=== PATIENT | female | born 1955 | race Caucasian/White ===

== ENCOUNTER 2023-04-04 09:20 | Inpatient (IN) | payer MEDICARE, SELFPAY ==
[2023-04-04] MEDS: hydrOXYzine HCL 25 MG TABLET PO ×2 (10:31→22:04)
[2023-04-04] MEDS: risperiDONE 2 MG TABLET PO ×2 (10:31→20:24)
[2023-04-04 10:45] VITALS: BMI 23.9
--- NOTE | 2023-04-04 11:26 | HO.PSYADMNOT ---
HPI Date of Service: 04/04/23 Chief Complaint: Adjustment disorder Sources of Information: patient interviewed, chart reviewed and crisis/core team assessment reviewed HPI Subjective Notes: Orellana Warning and Conditional Voluntary Narrative: The patient is a 67-year-old female, , mother of 1 adult child, resident of an assisted living facility referred from another hospital out of our catchment area for exacerbation of ashlie and psychosis. The patient was medically cleared, assessed by crisis and transferring to this facility for psychiatric stabilization. According to the crisis assessment the patient carries a diagnosis of bipolar disorder type 1 and alcohol use disorder in early remission. The crisis team report that the patient became very restless, agitated at times with altered mental status at her facility and she was rushed to the emergency room. While she was in the emergency room she had manic symptoms elicited by flight of ideas, grandiose but also psychotic symptoms elicited by paranoia and disorganized behavior. She was transferred to this facility for further treatment. On intake, the patient has very fast speech, flight of ideas, grandiose delusions, paranoid delusions but she was easily redirectable. Her mood was extremely labile, crying at times and laughing at times. She stated that she was taking her medications but she is unable to recall what can on medications she takes. I review the assessment and apparently her psychiatrist wanted to change her typical antipsychotic to Rexulti. She was able to contract for safety and she gave me permission to contact her psychiatrist and her daughter who is the primary caregiver. Apparently her daughter is a physician purchasing assistant and she takes care of her. We discussed risks, benefits, side effects and alternatives and the patient reported that she wants treatment. She wants to be discharged as soon as she can back to her regular residents. Past Psychiatric History: The patient is a very poor historian due to her ashlie and psychosis but apparently she had 2 or 3 prior admissions into the hospital. She stated that she start having manic symptoms very late in life and she self diagnosed with the condition. She follows outpatient services in her community. She had 2 prior admissions, most likely in the last 2 or 3 years Medical Evaluation Reviewed: Hospitalist Myah Pending [facility] Medical History (Updated 04/04/23 @ 15:47 by Duran Cobb) History of TIA (transient ischemic attack) Narrative: Hypothyroidism Hypertension Hypercholesteremia GERD Family History: She has a brother with bipolar disorder Social History: The patient was raised by her parents, apparently her milestones were achieved at expected age and she grabbed from high school. Substance History: She admitted that she used to abuse alcohol and tobacco and she had been clean and sober for the last months. She stated that she was diagnosed with a doll diagnosis. Trauma History: Refused to elaborate Diagnostics Vital Signs (24Hr): BMI result Body Mass Index 23.9 Meds/Allergies Meds Home Medications Medication Instructions Recorded Confirmed Type aspirin 81 mg tablet,delayed 81 mg PO DAILY 04/04/23 04/04/23 History release atorvastatin 40 mg tablet 40 mg PO BEDTIME 04/04/23 04/04/23 History clonidine HCl 0.1 mg tablet 0.1 mg PO BID 04/04/23 04/04/23 History clopidogrel 75 mg tablet 75 mg PO DAILY 04/04/23 04/04/23 History divalproex 500 mg tablet,delayed 500 mg PO BID 04/04/23 04/04/23 History release levothyroxine 50 mcg capsule 50 mcg PO DAILY 04/04/23 04/04/23 History omeprazole 40 mg capsule,delayed 40 mg PO DAILY 04/04/23 04/04/23 History release risperidone 2 mg tablet 2 mg PO BID 04/04/23 04/04/23 History spironolactone 25 mg tablet 12.5 mg PO DAILY 04/04/23 04/04/23 History thiamine HCl (vitamin B1) 100 mg 100 mg PO DAILY 04/04/23 04/04/23 History tablet Allergies Allergies Allergy/AdvReac Type Severity Reaction Status Date / Time Sulfa (Sulfonamide Allergy Unknown Verified 04/04/23 11:07 Antibiotics) Mental Status Exam Mental Status Exam Patient Appearance: Appropriate (On hospital gowns) Patient Orientation: Person and Situation Level of Consciousness: Awake and Appropriate Patient Behavior: Talkative, Restless and Distractible Mood Description: Elated Affect Description: Labile Ability to Follow Directions: Fair Speech Pattern: Rambling, Rapid and Excessive Hallucinations: None Delusions: Paranoid Ideation, Grandiose and Ideas of Reference Thought Process: Illogical and Distracted Thought Content: positive for Perseveration, positive for Loose Associations, positive for Tangential and positive for Disorganized Judgement: Poor Assessment & Plan Assessment & Plan (1) Bipolar disorder: Status: Acute Code(s): F31.9 - Bipolar disorder, unspecified (2) Alcohol use disorder in remission: Status: Acute Code(s): F10.91 - Alcohol use, unspecified, in remission Plan The patient is an elderly female with a past history of bipolar disorder and alcohol use disorder in early remission referred from another hospital out of our catchment area due to exacerbation of ashlie and psychosis. According to the crisis assessment his psychiatrist was contacted and he wants to change to Rexulti from Risperdal. Plan 1. Gather collateral information we will try to contact her daughter and psychiatrist. 2. Continue with regular medications such as Depakote and Risperdal since we do not have collateral at this moment. 3. Depakote level for tomorrow and basic metabolic panel with LFTs. 4. Hospitalist consult for medical clearance 5. Reassessment with results 6. 15 minute checks. Patient educated on: diagnosis Reason for continued inpatient stay Substantial Risk for: inability to function, rapid decompensation and med/psych decompensation Statement Statement: I have reviewed the history and physical and performed a pertinent examination on my patient. No changes have occurred unless specified. If the History and Physical was not performed prior to admission, the Hospitalist's service will be consulted for completing the admission physical. Time Spent With Patient Time: Total time managing care of this patient today __45__ minutes.
--- NOTE | 2023-04-04 13:01 | PC.ADMIT ---
Addendum entered by Irina Skinner RN 04/04/23 16:57: PMH includes hypothyroidism, hypercholesteremia, TIA (not confirmed), lymphoma (in remission) Original Note: Patient arrived via stretcher from [facility] at 0930 on CV. Prior to admission to [facility] patient had been residing at [facility]. Patient became dysregulated and verbally aggressive at [facility] and was sent for evaluation to ED. Patient presents as alert and oriented to person, place and time. Lacks insight into situation. Patient arrived wearing [facility]. Appears older than stated age but well groomed. Speech is pressured and animated. Thought process is disorganized and tangential. Patient affect fluctautes between crying/sadness, euphoria and suspicious. Patient perseverates on daughter, Yeimi, stating, she wants to control me. Patient VSS. Oriented to unit. Skin check done. Belongings inventoried. Patient initially participates in admission process however quickly becomes tangential. Observed socializing in the milieu with peers since arrival
--- NOTE | 2023-04-04 14:44 | PC.NURSE ---
Flu shot administered. R Deltoid. Patient tolerated well.
--- NOTE | 2023-04-04 15:43 | P.CNHOSGPS_ITS ---
History of Present Illness Data of Consult Service Date: 04/04/23 Primary Care Provider: Unknown Physician HPI Reason for consult: h and p 67F PMH bipolar, etoh dependence, hypothyroid, tia, headache, admitted to in patient psychiatry for acute psychosis. patient has no active medical complaints Review of Systems Review of Systems: Yes all other systems are reviewed and are negative [facility] Medical History (Updated 04/04/23 @ 15:44 by Salo Pickett MD) History of TIA (transient ischemic attack) Social History Housing: Assisted Living Facility Do you presently have visiting nurse or other home services: Yes ([facility]) Unable to assess alcohol history related to: Unknown Patient Tobacco Use Status: Current everyday Tobacco user Tobacco use type: Cigarette Smoked in Last 30 Days: Yes Patient Interested in Nicotine Replacement: Yes Patient Given Instructions on How to Stop Smoking: Yes Date Education Initiated: 04/04/23 Second Hand Smoke Exposure: No Use of substances other than those prescribed or required for medical reasons: No Currently Displaying Signs/Symptoms of Drug Intoxication Withdrawal: No Any prior treatment program specific to substance use: No Have you been hit, kicked, punched, or otherwise hurt by someone within the past year? If so, by whom?: No Do you feel safe in your current relationship?: No Current Relationship Is there a partner from a previous relationship who is making you feel unsafe now?: No Are you made to feel afraid or neglected: No Advance Directives: No Do you have thoughts of harming others: None Do you have a plan to hurt others: No Plan Recently lost weight without trying: Unsure Nutrition Risks: No Nutritional Risk Patient : No : No Poor oral hygiene: No Meds Allergies Allergy/AdvReac Type Severity Reaction Status Date / Time Sulfa (Sulfonamide Allergy Unknown Verified 04/04/23 11:07 Antibiotics) Active Medications: Current Medications Acetaminophen (Acetaminophen 325 Mg Tablet) 650 mg PO Q6H PRN PRN Reason: Headache/Pain Mild Scale (1-3) Al Hydroxide/Mg Hydroxide (Magnesium Hydrox/Alum Hydrox 30 Ml Oral.Susp) 30 ml PO Q6H PRN PRN Reason: Heartburn/Nausea Aspirin (Aspirin 81 Mg Tab.Chew) 81 mg PO DAILY [facility] Atorvastatin Calcium (Atorvastatin Calcium 40 Mg Tablet) 40 mg PO BEDTIME [facility] Clonidine HCl (Clonidine Hcl 0.1 Mg Tablet) 0.1 mg PO BID [facility]; Protocol Clopidogrel Bisulfate (Clopidogrel Bisulfate 75 Mg Tablet) 75 mg PO DAILY [facility] Divalproex Sodium (Divalproex Sodium 500 Mg Tablet.) 500 mg PO BID [facility] Hydroxyzine HCl (Hydroxyzine Hcl 25 Mg Tablet) 25 mg PO Q6H PRN PRN Reason: Anxiety Last Admin: 04/04/23 10:31 Dose: 25 mg Levothyroxine Sodium (Levothyroxine Sodium 50 Mcg Tablet) 50 mcg PO DAILY@0600 [facility] Magnesium Hydroxide (Milk Of Magnesia 30 Ml Oral.Susp) 30 ml PO DAILY PRN PRN Reason: Constipation Omeprazole (Omeprazole 40 Mg Capsule.) 40 mg PO DAILY@0630 [facility] Risperidone (Risperidone 2 Mg Tablet) 2 mg PO BID [facility] Last Admin: 04/04/23 10:31 Dose: 2 mg Spironolactone (Spironolactone 25 Mg Tablet) 12.5 mg PO DAILY [facility]; Protocol Thiamine HCl (Thiamine Hcl 100 Mg Tablet) 100 mg PO DAILY [facility] Trazodone HCl (Trazodone Hcl 50 Mg Tablet) 50 mg PO BEDTIME MRX1 PRN PRN Reason: Insomnia Home Medications Medication Instructions Recorded Confirmed Last Taken Type aspirin 81 mg tablet,delayed 81 mg PO DAILY 04/04/23 04/04/23 Unknown History release atorvastatin 40 mg tablet 40 mg PO BEDTIME 04/04/23 04/04/23 Unknown History clonidine HCl 0.1 mg tablet 0.1 mg PO BID 04/04/23 04/04/23 Unknown History clopidogrel 75 mg tablet 75 mg PO DAILY 04/04/23 04/04/23 Unknown History divalproex 500 mg tablet,delayed 500 mg PO BID 04/04/23 04/04/23 Unknown History release levothyroxine 50 mcg capsule 50 mcg PO DAILY 04/04/23 04/04/23 Unknown History omeprazole 40 mg capsule,delayed 40 mg PO DAILY 04/04/23 04/04/23 Unknown History release risperidone 2 mg tablet 2 mg PO BID 04/04/23 04/04/23 Unknown History spironolactone 25 mg tablet 12.5 mg PO DAILY 04/04/23 04/04/23 Unknown History thiamine HCl (vitamin B1) 100 mg 100 mg PO DAILY 04/04/23 04/04/23 Unknown History tablet Assessment and Plan (1) History of TIA (transient ischemic attack): Status: Acute Plan 67F PMH bipolar, etoh dependence, tia, headache, hypothyroid, admitted to inpatient psychiatry for acute psychosis history of tia dapl, statin etoh dependence mointor for [facility] hypothyroid synthroid Physical Exam Vital Signs: BMI result Body Mass Index 23.9 Resp: CTA bilateral, no accessory muscles used CVS: S1,S2,RRR GI: soft, non tender, non distended Neuro: motor grossly intact, alert Neuro Cranial nerves: Yes CN's II-XII intact bilaterally
[2023-04-04 19:35] VITALS: BP 129/72; PULSE 86; RESP 16; TEMP 36.7; O2SAT 98
[2023-04-04] MEDS: traZODone HCL 50 MG TABLET PO ×2 (20:24→22:04)
[2023-04-04] MEDS: Atorvastatin Calcium 40 MG TABLET PO (20:24)
[2023-04-04] MEDS: cloNIDine HCL 0.1 MG TABLET PO (20:25)
[2023-04-04] MEDS: Divalproex Sodium 500 MG TABLET.DR PO (20:25)
[2023-04-05 06:00] VITALS: BP 100/73; PULSE 84; RESP 16; TEMP 36.8; O2SAT 96
[2023-04-05] MEDS: Omeprazole 40 MG CAPSULE.DR PO (06:15)
[2023-04-05] MEDS: Levothyroxine Sodium 50 MCG TABLET PO (06:15)
[2023-04-05] MEDS: Divalproex Sodium 500 MG TABLET.DR PO ×2 (08:20→21:12)
[2023-04-05] MEDS: risperiDONE 2 MG TABLET PO ×2 (08:21→21:12)
[2023-04-05] MEDS: Clopidogrel Bisulfate 75 MG TABLET PO (08:21)
[2023-04-05] MEDS: cloNIDine HCL 0.1 MG TABLET PO ×2 (08:21→21:11)
[2023-04-05] MEDS: Spironolactone 25 MG TABLET 12.5 MG PO (08:21)
[2023-04-05] MEDS: Aspirin 81 MG TAB.CHEW PO (08:22)
[2023-04-05 08:23] LABS: Alanine Aminotransferase 7 U/L (0-31); Albumin Level 3.9 g/dL (3.5-5.0); Alkaline Phosphatase 66 U/L (39-117); Anion Gap 10 (12-20); Aspartate Amino Transferase 13 U/L (5-31); Bilirubin Total 1.2 mg/dL (0.0-1.0); Blood Urea Nitrogen 9 mg/dL (9-16); Calcium 8.9 mg/dL (8.4-10.2); Carbon Dioxide 26 mmol/L (22-29); Chloride 103 mmol/L (96-108); Cholesterol 123 mg/dL (<200); Creatinine Clr Calc Pharmacy 84.4; Estimated Glomerular Filt Rate > 60; Glucose Fasting 104 mg/dL (60-99); HDL Cholesterol 54 mg/dL (>40); LDL Cholesterol Calculated 57 mg/dL (<100); Potassium 4.4 mmol/L (3.3-5.1); Sodium 135 mmol/L (135-145); Total Protein 6.8 g/dL (6.5-8.0); Triglycerides 62 mg/dL (<150)
[2023-04-05] MEDS: Thiamine HCL 100 MG TABLET PO (08:23)
[2023-04-05] MEDS: hydrOXYzine HCL 25 MG TABLET PO (09:28)
--- NOTE | 2023-04-05 15:11 | HO.PSYCHPN ---
Subjective Subjective Date of Service: 04/05/23 Reason For Visit: Adjustment disorder Subjective Notes: Conditional Voluntary and 3 Day Interim History: The nursing staff reported the patient signed a 3 day notice and she wants to be discharged. She had been disorganized, with flight of ideas, fast speech intrusive with peers and aggressive at times but redirectable. She has very poor boundaries with her peers. On interview the patient was hyper talkative, with fast speech flight of ideas. I contact his her daughter and she provide collateral information apparently she had been admitted into the hospital 4 times in the last year. I tried to contact his psychiatrist Dr. Ulisses landry at , he has been to call back 20 minutes after but later on he did not pick up operator and left a message. He wants according to the letter that he left on the chart, to be transition to and air T psychotic. Mental Status Exam Mental Status Exam Patient Appearance: Appropriate Patient Orientation: Person, Place and Situation Level of Consciousness: Awake and Appropriate Patient Behavior: Restless and Wandering Mood Description: Labile Affect Description: Hostile and Labile Patient Cognition Impaired: No Ability to Follow Directions: Fair Speech Pattern: Rambling and Rapid Hallucinations: None Delusions: Grandiose and Ideas of Reference Thought Process: Distracted, Slowed Thinking and Confusion Thought Content: positive for [facility] and positive for Disorganized Judgement: Poor Diagnostics Vital Signs (24Hr): Vital Signs - 24 hr 04/04/23 19:35 04/05/23 06:00 Temperature 98.1 F 98.2 F Pulse Rate 86 84 Respiratory Rate 16 16 Blood Pressure 129/72 100/73 Pulse Oximetry 98 96 Oxygen Delivery Method Room Air Room Air BMI result Body Mass Index 23.9 Labs 04/05/23 07:49 Labs: Laboratory Results - last 48 hr 04/05/23 07:49 Sodium 135 Potassium 4.4 Chloride 103 Carbon Dioxide 26 Anion Gap 10 L BUN 9 Creatinine 0.62 Estim Creat Clear Calc 84.4 Estimated GFR > 60 Fasting Glucose 104 H Calcium 8.9 Total Bilirubin 1.2 H AST 13 ALT 7 Alkaline Phosphatase 66 Total Protein 6.8 Albumin 3.9 Triglycerides 62 Cholesterol 123 LDL Cholesterol, Calc 57 HDL Cholesterol 54 Medications Medications Current Medications Acetaminophen (Acetaminophen 325 Mg Tablet) 650 mg PO Q6H PRN PRN Reason: Headache/Pain Mild Scale (1-3) Al Hydroxide/Mg Hydroxide (Magnesium Hydrox/Alum Hydrox 30 Ml Oral.Susp) 30 ml PO Q6H PRN PRN Reason: Heartburn/Nausea Aspirin (Aspirin 81 Mg Tab.Chew) 81 mg PO DAILY [facility] Last Admin: 04/05/23 08:22 Dose: 81 mg Atorvastatin Calcium (Atorvastatin Calcium 40 Mg Tablet) 40 mg PO BEDTIME [facility] Last Admin: 04/04/23 20:24 Dose: 40 mg Clonidine HCl (Clonidine Hcl 0.1 Mg Tablet) 0.1 mg PO BID [facility]; Protocol Last Admin: 04/05/23 08:21 Dose: 0.1 mg Clopidogrel Bisulfate (Clopidogrel Bisulfate 75 Mg Tablet) 75 mg PO DAILY [facility] Last Admin: 04/05/23 08:21 Dose: 75 mg Divalproex Sodium (Divalproex Sodium 500 Mg Tablet.) 500 mg PO BID [facility] Last Admin: 04/05/23 08:20 Dose: 500 mg Levothyroxine Sodium (Levothyroxine Sodium 50 Mcg Tablet) 50 mcg PO DAILY@0600 [facility] Last Admin: 04/05/23 06:15 Dose: 50 mcg Lorazepam (Lorazepam 1 Mg Tablet) 1 mg PO Q6H PRN PRN Reason: anxiety/restlessness Magnesium Hydroxide (Milk Of Magnesia 30 Ml Oral.Susp) 30 ml PO DAILY PRN PRN Reason: Constipation Olanzapine (Olanzapine Odt 10 Mg Tab.Rapdis) 10 mg TRANSLINGU BID PRN PRN Reason: Psychosis Omeprazole (Omeprazole 40 Mg Capsule.) 40 mg PO DAILY@0630 [facility] Last Admin: 04/05/23 06:15 Dose: 40 mg Risperidone (Risperidone 2 Mg Tablet) 2 mg PO BID [facility] Last Admin: 04/05/23 08:21 Dose: 2 mg Spironolactone (Spironolactone 25 Mg Tablet) 12.5 mg PO DAILY [facility]; Protocol Last Admin: 04/05/23 08:21 Dose: 12.5 mg Thiamine HCl (Thiamine Hcl 100 Mg Tablet) 100 mg PO DAILY [facility] Last Admin: 04/05/23 08:23 Dose: 100 mg Trazodone HCl (Trazodone Hcl 50 Mg Tablet) 50 mg PO BEDTIME MRX1 PRN PRN Reason: Insomnia Last Admin: 04/04/23 22:04 Dose: 50 mg Allergies Allergies Allergy/AdvReac Type Severity Reaction Status Date / Time Sulfa (Sulfonamide Allergy Unknown Verified 04/04/23 11:07 Antibiotics) Assessment & Plan Assessment & Plan (1) Bipolar disorder: Status: Acute Code(s): F31.9 - Bipolar disorder, unspecified (2) Alcohol use disorder in remission: Status: Acute Code(s): F10.91 - Alcohol use, unspecified, in remission (3) History of TIA (transient ischemic attack): Status: Acute Code(s): Z86.73 - Personal history of transient ischemic attack (TIA), and cerebral infarction without residual deficits Plan The patient is an elderly female with a past history of bipolar disorder and alcohol use disorder in early remission referred from another hospital out of our catchment area due to exacerbation of ashlie and psychosis. According to the crisis assessment his psychiatrist was contacted and he wants to change to Rexulti from Risperdal. Plan 1. Gather collateral information we will try to contact her daughter and psychiatrist. I could speak with her daughter on April 05 and I left a message at her psychiatrist voicemail. 2. Continue with regular medications such as Depakote and Risperdal since we do not have collateral at this moment. 3. Depakote level for tomorrow and basic metabolic panel with LFTs. 4. Hospitalist consult for medical clearance 5. Reassessment with results 6. 15 minute checks. 7. Add Ativan p.r.n. anxiety and Zydis p.r.n. agitation/psychosis. Reason for continued inpatient stay Substantial Risk for: inability to function, rapid decompensation and med/psych decompensation Time Spent With Patient Time: Total time managing care of this patient today __20__ minutes.
[2023-04-05] MEDS: LORazepam 1 MG TABLET PO (15:46)
[2023-04-05] MEDS: OLANZapine ODT 10 MG TAB.RAPDIS TRANSLINGU (15:46)
[2023-04-05 18:00] VITALS: BP 123/58; PULSE 67; RESP 17; TEMP 36.2; O2SAT 95
[2023-04-05] MEDS: Atorvastatin Calcium 40 MG TABLET PO (21:11)
[2023-04-06] MEDS: Omeprazole 40 MG CAPSULE.DR PO (05:40)
[2023-04-06] MEDS: Levothyroxine Sodium 50 MCG TABLET PO (05:40)
[2023-04-06] MEDS: Acetaminophen 325 MG TABLET 650 MG PO (06:02)
[2023-04-06 07:55] VITALS: BP 110/58; PULSE 79; RESP 18; TEMP 36.2; O2SAT 99
[2023-04-06] MEDS: Spironolactone 25 MG TABLET 12.5 MG PO (09:04)
[2023-04-06] MEDS: Aspirin 81 MG TAB.CHEW PO (09:04)
[2023-04-06] MEDS: risperiDONE 2 MG TABLET PO ×2 (09:04→20:32)
[2023-04-06] MEDS: Thiamine HCL 100 MG TABLET PO (09:04)
[2023-04-06] MEDS: Divalproex Sodium 500 MG TABLET.DR PO ×2 (09:07→20:32)
[2023-04-06] MEDS: cloNIDine HCL 0.1 MG TABLET PO ×2 (09:07→20:31)
[2023-04-06] MEDS: Clopidogrel Bisulfate 75 MG TABLET PO (09:07)
--- NOTE | 2023-04-06 12:15 | HO.PSYCHPN ---
Subjective Subjective Date of Service: 04/06/23 Reason For Visit: Adjustment disorder Interim History: manic, pressured. per staff, disorganized, hyperverbal, intrusive. Mental Status Exam Mental Status Exam Patient Appearance: Appropriate Patient Orientation: Person, Place and Situation Level of Consciousness: Awake and Appropriate Patient Behavior: Restless and Wandering Mood Description: Labile Affect Description: Hostile and Labile Patient Cognition Impaired: No Ability to Follow Directions: Fair Speech Pattern: Rambling and Rapid Hallucinations: None Delusions: Grandiose and Ideas of Reference Thought Process: Distracted, Slowed Thinking and Confusion Thought Content: positive for [place] and positive for Disorganized Judgement: Poor Diagnostics Vital Signs (24Hr): Vital Signs - 24 hr 04/05/23 18:00 04/06/23 07:55 Temperature 97.2 F 97.2 F Pulse Rate 67 79 Respiratory Rate 17 18 Blood Pressure 123/58 L 110/58 L Pulse Oximetry 95 99 Oxygen Delivery Method Room Air Room Air BMI result Body Mass Index 23.9 Labs 04/05/23 07:49 Labs: Laboratory Results - last 48 hr 04/05/23 07:49 Sodium 135 Potassium 4.4 Chloride 103 Carbon Dioxide 26 Anion Gap 10 L BUN 9 Creatinine 0.62 Estim Creat Clear Calc 84.4 Estimated GFR > 60 Fasting Glucose 104 H Calcium 8.9 Total Bilirubin 1.2 H AST 13 ALT 7 Alkaline Phosphatase 66 Total Protein 6.8 Albumin 3.9 Triglycerides 62 Cholesterol 123 LDL Cholesterol, Calc 57 HDL Cholesterol 54 Medications Medications Current Medications Acetaminophen (Acetaminophen 325 Mg Tablet) 650 mg PO Q6H PRN PRN Reason: Headache/Pain Mild Scale (1-3) Last Admin: 04/06/23 06:02 Dose: 650 mg Al Hydroxide/Mg Hydroxide (Magnesium Hydrox/Alum Hydrox 30 Ml Oral.Susp) 30 ml PO Q6H PRN PRN Reason: Heartburn/Nausea Aspirin (Aspirin 81 Mg Tab.Chew) 81 mg PO DAILY [facility] Last Admin: 04/06/23 09:04 Dose: 81 mg Atorvastatin Calcium (Atorvastatin Calcium 40 Mg Tablet) 40 mg PO BEDTIME [facility] Last Admin: 04/05/23 21:11 Dose: 40 mg Clonidine HCl (Clonidine Hcl 0.1 Mg Tablet) 0.1 mg PO BID [facility]; Protocol Last Admin: 04/06/23 09:07 Dose: 0.1 mg Clopidogrel Bisulfate (Clopidogrel Bisulfate 75 Mg Tablet) 75 mg PO DAILY [facility] Last Admin: 04/06/23 09:07 Dose: 75 mg Divalproex Sodium (Divalproex Sodium 500 Mg Tablet.) 500 mg PO BID [facility] Last Admin: 04/06/23 09:07 Dose: 500 mg Levothyroxine Sodium (Levothyroxine Sodium 50 Mcg Tablet) 50 mcg PO DAILY@0600 [facility] Last Admin: 04/06/23 05:40 Dose: 50 mcg Lorazepam (Lorazepam 1 Mg Tablet) 1 mg PO Q6H PRN PRN Reason: anxiety/restlessness Last Admin: 04/05/23 15:46 Dose: 1 mg Magnesium Hydroxide (Milk Of Magnesia 30 Ml Oral.Susp) 30 ml PO DAILY PRN PRN Reason: Constipation Olanzapine (Olanzapine Odt 10 Mg Tab.Rapdis) 10 mg TRANSLINGU BID PRN PRN Reason: Psychosis Last Admin: 04/05/23 15:46 Dose: 10 mg Omeprazole (Omeprazole 40 Mg Capsule.) 40 mg PO DAILY@0630 [facility] Last Admin: 04/06/23 05:40 Dose: 40 mg Risperidone (Risperidone 2 Mg Tablet) 2 mg PO BID [facility] Last Admin: 04/06/23 09:04 Dose: 2 mg Spironolactone (Spironolactone 25 Mg Tablet) 12.5 mg PO DAILY [facility]; Protocol Last Admin: 04/06/23 09:04 Dose: 12.5 mg Thiamine HCl (Thiamine Hcl 100 Mg Tablet) 100 mg PO DAILY [facility] Last Admin: 04/06/23 09:04 Dose: 100 mg Trazodone HCl (Trazodone Hcl 50 Mg Tablet) 50 mg PO BEDTIME MRX1 PRN PRN Reason: Insomnia Last Admin: 04/04/23 22:04 Dose: 50 mg Allergies Allergies Allergy/AdvReac Type Severity Reaction Status Date / Time Sulfa (Sulfonamide Allergy Unknown Verified 04/04/23 11:07 Antibiotics) Assessment & Plan Assessment & Plan (1) Bipolar disorder: Status: Acute Code(s): F31.9 - Bipolar disorder, unspecified (2) Alcohol use disorder in remission: Status: Acute Code(s): F10.91 - Alcohol use, unspecified, in remission (3) History of TIA (transient ischemic attack): Status: Acute Code(s): Z86.73 - Personal history of transient ischemic attack (TIA), and cerebral infarction without residual deficits Plan The patient is an elderly female with a past history of bipolar disorder and alcohol use disorder in early remission referred from another hospital out of our catchment area due to exacerbation of ashlie and psychosis. According to the crisis assessment his psychiatrist was contacted and he wants to change to Rexulti from Risperdal. Plan 1. Gather collateral information we will try to contact her daughter and psychiatrist. I could speak with her daughter on April 05 and I left a message at her psychiatrist voicemail. 2. Continue with regular medications such as Depakote and Risperdal since we do not have collateral at this moment. 3. Depakote level for tomorrow and basic metabolic panel with LFTs. 4. Hospitalist consult for medical clearance 5. Reassessment with results 6. 15 minute checks. 7. Add Ativan p.r.n. anxiety and Zydis p.r.n. agitation/psychosis. 04/06: remains manic. check VPA level, ammonia, CBC. LFTs and BMP done yesterday, unremarkable. Reason for continued inpatient stay Substantial Risk for: inability to function Time Spent With Patient Time: Total time managing care of this patient today ____ minutes.
--- NOTE | 2023-04-06 13:19 | PC.NURSE ---
patient complaining of eye discomfort. [facility] called in [place],. Patient had prescription for Erythromycin Opthalmic Ointment one ribbon to both eye 3x/day for 7 days picked up on 03/16/2023. Dr. Cortes aware.
[2023-04-06] MEDS: Erythromycin Base 0.5% Oph Oin 1 GM TUBE 1 CM EYE-BOTH ×2 (14:44→20:32)
--- NOTE | 2023-04-06 14:50 | PC.NURSE ---
Ilotycin ordered today and started.
[2023-04-06 18:00] VITALS: BP 121/55; PULSE 63; RESP 18; TEMP 36.3; O2SAT 100
[2023-04-06] MEDS: LORazepam 1 MG TABLET PO (19:00)
--- NOTE | 2023-04-06 19:01 | PC.NURSE ---
Patient complained of increased anxiety, Ativan requested and given, effect pending.
[2023-04-06 20:23] LABS: MANUAL DIFF FLAG NO
[2023-04-06 20:25] LABS: Basophils Percent Auto 0.3 % (0-2); Eosinophils Absolute Auto 0.1 X10*3/uL (0.0-0.4); Eosinophils Percent Auto 3.3 % (0-4); Hematocrit 34.6 % (37.0-47.0); Hemoglobin 10.8 g/dl (12.0-16.0); Imm Gran Abs Auto 0.01 X10*3/uL (0.00-0.03); Imm Gran Pct Auto 0.3 % (0.0-0.4); Lymphocytes Percent Auto 24.6 % (20-40); Mean Corpuscular HGB Conc 31.2 g/dl (31.0-35.0); Mean Corpuscular Hemoglobin 29.2 pg (27.0-33.0); Mean Corpuscular Volume 93.5 fL (80.0-98.0); Mean Platelet Volume 9.2 fL (9.4-12.3); Monocytes Absolute Auto 0.4 X10*3/uL (0.1-1.2); Monocytes Percent Auto 10.6 % (2-11); Neutrophils Absolute Auto 2.4 x10*3/uL (2.0-8.3); Neutrophils Percent Auto 60.9 % (45-73); Platelet Count 181 X10*3/uL (160-400); Red Cell Distribution Width 16.7 % (11.0-16.0)
[2023-04-06] MEDS: Atorvastatin Calcium 40 MG TABLET PO (20:31)
[2023-04-06 20:38] LABS: Ammonia 27 umol/L (13-55)
[2023-04-06 20:43] LABS: Valproate 45.9 mcg/mL (50.0-100.0)
[2023-04-07] MEDS: Acetaminophen 325 MG TABLET 650 MG PO (02:29)
[2023-04-07] MEDS: Levothyroxine Sodium 50 MCG TABLET PO (05:39)
[2023-04-07] MEDS: Omeprazole 40 MG CAPSULE.DR PO (05:39)
[2023-04-07 07:40] VITALS: BP 126/64; PULSE 61; RESP 18; TEMP 35.7; O2SAT 100
[2023-04-07] MEDS: Aspirin 81 MG TAB.CHEW PO (08:46)
[2023-04-07] MEDS: Spironolactone 25 MG TABLET 12.5 MG PO (08:47)
[2023-04-07] MEDS: Erythromycin Base 0.5% Oph Oin 1 GM TUBE 1 CM EYE-BOTH ×3 (08:49→20:56)
[2023-04-07] MEDS: risperiDONE 2 MG TABLET PO ×2 (08:49→20:46)
[2023-04-07] MEDS: Clopidogrel Bisulfate 75 MG TABLET PO (08:49)
[2023-04-07] MEDS: Divalproex Sodium 500 MG TABLET.DR PO (08:49)
[2023-04-07] MEDS: Thiamine HCL 100 MG TABLET PO (08:49)
[2023-04-07] MEDS: cloNIDine HCL 0.1 MG TABLET PO ×2 (08:50→20:46)
--- NOTE | 2023-04-07 12:17 | P.PNPSI_ITS ---
Subjective Subjective Date of Service: 04/07/23 Reason For Visit: Adjustment disorder Interim History: very chatty, a bit more organized and self-aware than yesterday. per staff, talkative, anxious. ativan in pm. no foot infection. denies depression. meds and meals compliant. A&O x3. Mental Status Exam Mental Status Exam Patient Appearance: Appropriate Patient Orientation: Person, Place and Situation Level of Consciousness: Awake and Appropriate Patient Behavior: Restless and Wandering Mood Description: Anxious Affect Description: Calm, Appropriate and Constricted Patient Cognition Impaired: No Ability to Follow Directions: Fair Speech Pattern: Rapid Hallucinations: None Delusions: Not Present Thought Process: Intact and Goal Oriented Thought Content: positive for Intact Judgement: Poor Diagnostics Vital Signs (24Hr): Vital Signs - 24 hr 04/06/23 18:00 04/07/23 07:40 Temperature 97.3 F 96.3 F L Pulse Rate 63 61 Respiratory Rate 18 18 Blood Pressure 121/55 L 126/64 Pulse Oximetry 100 100 Oxygen Delivery Method Room Air Room Air BMI result Body Mass Index 23.9 Labs 04/06/23 20:09 04/05/23 07:49 Labs: Laboratory Results - last 48 hr 04/06/23 20:09 WBC 4.0 L RBC 3.70 L Hgb 10.8 L Hct 34.6 L MCV 93.5 MCH 29.2 MCHC 31.2 RDW 16.7 H Plt Count 181 MPV 9.2 L Immature Gran % (Auto) 0.3 Neut % (Auto) 60.9 Lymph % (Auto) 24.6 [place] % (Auto) 10.6 Eos % (Auto) 3.3 Baso % (Auto) 0.3 Lymph # (Auto) 1.0 L [place] # (Auto) 0.4 Eos # (Auto) 0.1 Baso # (Auto) 0.0 Abs Immat Gran (auto) 0.01 Absolute Neuts (auto) 2.4 Absolute Nucleated RBC 0.000 Nucleated RBC % (auto) 0.0 Ammonia 27 Valproic Acid 45.9 L Medications Medications Current Medications Acetaminophen (Acetaminophen 325 Mg Tablet) 650 mg PO Q6H PRN PRN Reason: Headache/Pain Mild Scale (1-3) Last Admin: 04/07/23 02:29 Dose: 650 mg Al Hydroxide/Mg Hydroxide (Magnesium Hydrox/Alum Hydrox 30 Ml Oral.Susp) 30 ml PO Q6H PRN PRN Reason: Heartburn/Nausea Aspirin (Aspirin 81 Mg Tab.Chew) 81 mg PO DAILY [facility] Last Admin: 04/07/23 08:46 Dose: 81 mg Atorvastatin Calcium (Atorvastatin Calcium 40 Mg Tablet) 40 mg PO BEDTIME [facility] Last Admin: 04/06/23 20:31 Dose: 40 mg Clonidine HCl (Clonidine Hcl 0.1 Mg Tablet) 0.1 mg PO BID [facility]; Protocol Last Admin: 04/07/23 08:50 Dose: 0.1 mg Clopidogrel Bisulfate (Clopidogrel Bisulfate 75 Mg Tablet) 75 mg PO DAILY [facility] Last Admin: 04/07/23 08:49 Dose: 75 mg Divalproex Sodium (Divalproex Sodium 250 Mg Tablet.) 750 mg PO BID [facility] Erythromycin (Erythromycin Base 0.5% Oph Oin 1 Gm Tube) 1 cm EYE-BOTH TID [facility] Stop: 04/13/23 14:59 Last Admin: 04/07/23 08:49 Dose: 1 cm Levothyroxine Sodium (Levothyroxine Sodium 50 Mcg Tablet) 50 mcg PO DAILY@0600 [facility] Last Admin: 04/07/23 05:39 Dose: 50 mcg Lorazepam (Lorazepam 0.5 Mg Tablet) 0.5 mg PO Q6H PRN PRN Reason: anxiety/restlessness Magnesium Hydroxide (Milk Of Magnesia 30 Ml Oral.Susp) 30 ml PO DAILY PRN PRN Reason: Constipation Olanzapine (Olanzapine Odt 10 Mg Tab.Rapdis) 10 mg TRANSLINGU BID PRN PRN Reason: Psychosis Last Admin: 04/05/23 15:46 Dose: 10 mg Omeprazole (Omeprazole 40 Mg Capsule.) 40 mg PO DAILY@0630 [facility] Last Admin: 04/07/23 05:39 Dose: 40 mg Risperidone (Risperidone 2 Mg Tablet) 2 mg PO BID [facility] Last Admin: 04/07/23 08:49 Dose: 2 mg Spironolactone (Spironolactone 25 Mg Tablet) 12.5 mg PO DAILY [facility]; Protocol Last Admin: 04/07/23 08:47 Dose: 12.5 mg Thiamine HCl (Thiamine Hcl 100 Mg Tablet) 100 mg PO DAILY [facility] Last Admin: 04/07/23 08:49 Dose: 100 mg Trazodone HCl (Trazodone Hcl 50 Mg Tablet) 50 mg PO BEDTIME MRX1 PRN PRN Reason: Insomnia Last Admin: 04/04/23 22:04 Dose: 50 mg Allergies Allergies Allergy/AdvReac Type Severity Reaction Status Date / Time Sulfa (Sulfonamide Allergy Unknown Verified 04/04/23 11:07 Antibiotics) Assessment & Plan Assessment & Plan (1) Bipolar disorder: Status: Acute Code(s): F31.9 - Bipolar disorder, unspecified (2) Alcohol use disorder in remission: Status: Acute Code(s): F10.91 - Alcohol use, unspecified, in remission (3) History of TIA (transient ischemic attack): Status: Acute Code(s): Z86.73 - Personal history of transient ischemic attack (TIA), and cerebral infarction without residual deficits Plan The patient is an elderly female with a past history of bipolar disorder and alcohol use disorder in early remission referred from another hospital out of our catchment area due to exacerbation of ahslie and psychosis. According to the crisis assessment his psychiatrist was contacted and he wants to change to Rexulti from Risperdal. Plan 1. Gather collateral information we will try to contact her daughter and psychiatrist. I could speak with her daughter on April 05 and I left a message at her psychiatrist voicemail. 2. Continue with regular medications such as Depakote and Risperdal since we do not have collateral at this moment. 3. Depakote level for tomorrow and basic metabolic panel with LFTs. 4. Hospitalist consult for medical clearance 5. Reassessment with results 6. 15 minute checks. 7. Add Ativan p.r.n. anxiety and Zydis p.r.n. agitation/psychosis. 04/06: remains manic. check VPA level, ammonia, CBC. LFTs and BMP done yesterday, unremarkable. 04/07: more organized, logical. less delusional. VPA level 45.9. pancytopenia, labs otherwise unremarkable. ammonia WNL. continue current mgmt. Reason for continued inpatient stay Substantial Risk for: inability to function and rapid decompensation Time Spent With Patient Time: Total time managing care of this patient today __25__ minutes.
[2023-04-07 18:00] VITALS: BP 109/56; PULSE 64; RESP 16; TEMP 36.4; O2SAT 98
[2023-04-07] MEDS: Divalproex Sodium 250 MG TABLET.DR 750 MG PO (20:45)
[2023-04-07] MEDS: Atorvastatin Calcium 40 MG TABLET PO (20:46)
[2023-04-07] MEDS: LORazepam 0.5 MG TABLET PO (21:55)
[2023-04-08] MEDS: LORazepam 0.5 MG TABLET PO ×3 (03:37→21:26)
[2023-04-08] MEDS: Levothyroxine Sodium 50 MCG TABLET PO (06:38)
[2023-04-08] MEDS: Omeprazole 40 MG CAPSULE.DR PO (06:38)
[2023-04-08 08:05] VITALS: BP 123/67; PULSE 69; RESP 20; TEMP 36.2; O2SAT 100
[2023-04-08] MEDS: Divalproex Sodium 250 MG TABLET.DR 750 MG PO ×2 (09:06→21:28)
[2023-04-08] MEDS: Aspirin 81 MG TAB.CHEW PO (09:07)
[2023-04-08] MEDS: Clopidogrel Bisulfate 75 MG TABLET PO (09:07)
[2023-04-08] MEDS: risperiDONE 2 MG TABLET PO (09:07)
[2023-04-08] MEDS: Thiamine HCL 100 MG TABLET PO (09:07)
[2023-04-08] MEDS: OLANZapine ODT 10 MG TAB.RAPDIS TRANSLINGU (09:07)
[2023-04-08] MEDS: Erythromycin Base 0.5% Oph Oin 1 GM TUBE 1 CM EYE-BOTH ×3 (09:07→21:28)
[2023-04-08] MEDS: cloNIDine HCL 0.1 MG TABLET PO ×2 (09:07→21:27)
[2023-04-08] MEDS: Spironolactone 25 MG TABLET 12.5 MG PO (09:07)
[2023-04-08] MEDS: Ibuprofen 600 MG TABLET PO (10:04)
[2023-04-08] MEDS: Nicotine 21 MG PATCH.TD24 TRANSDERMA (13:24)
--- NOTE | 2023-04-08 14:17 | P.PNPSI_ITS ---
Subjective Subjective Date of Service: 04/08/23 Reason For Visit: Adjustment disorder Subjective Notes: Conditional Voluntary and 3 Day Interim History: THE NURSING STAFF REPORTED THE PATIENT HAD BEEN COMMON COOPERATIVE TAKING HER MEDICATIONS. ATIVAN WAS LOWERED AND APPARENTLY HER DEPAKOTE WAS INCREASED OVER THE WEEKEND. SHE HAS BEEN TEARFUL WITH HER DAUGHTER. TODAY I COULD CONTACT HER PSYCHIATRIST AND HE WANTS TO CROSS TAPER RISPERDAL TO ANOTHER ANTIPSYCHOTIC. I TRIED TO CONVINCE HER TO RETRACT HER 3 DAY NOTICE AND SHE AGREED TO GET D/C ON SATURDAY. Mental Status Exam Mental Status Exam Patient Appearance: Appropriate Patient Orientation: Person and Situation Level of Consciousness: Awake and Appropriate Patient Behavior: Guarded and Passive Mood Description: Withdrawn Affect Description: Constricted Ability to Follow Directions: Good Speech Pattern: Clear Hallucinations: None Thought Process: Linear Thought Content: positive for [place], positive for [place] and positive for Loose Associations Judgement: Fair Diagnostics Vital Signs (24Hr): Vital Signs - 24 hr 04/07/23 18:00 04/08/23 08:05 Temperature 97.6 F 97.2 F Pulse Rate 64 69 Respiratory Rate 16 20 Blood Pressure 109/56 L 123/67 Pulse Oximetry 98 100 Oxygen Delivery Method Room Air Room Air BMI result Body Mass Index 23.9 Labs 04/06/23 20:09 04/05/23 07:49 Labs: Laboratory Results - last 48 hr 04/06/23 20:09 WBC 4.0 L RBC 3.70 L Hgb 10.8 L Hct 34.6 L MCV 93.5 MCH 29.2 MCHC 31.2 RDW 16.7 H Plt Count 181 MPV 9.2 L Immature Gran % (Auto) 0.3 Neut % (Auto) 60.9 Lymph % (Auto) 24.6 [place] % (Auto) 10.6 Eos % (Auto) 3.3 Baso % (Auto) 0.3 Lymph # (Auto) 1.0 L [place] # (Auto) 0.4 Eos # (Auto) 0.1 Baso # (Auto) 0.0 Abs Immat Gran (auto) 0.01 Absolute Neuts (auto) 2.4 Absolute Nucleated RBC 0.000 Nucleated RBC % (auto) 0.0 Ammonia 27 Valproic Acid 45.9 L Medications Medications Current Medications Al Hydroxide/Mg Hydroxide (Magnesium Hydrox/Alum Hydrox 30 Ml Oral.Susp) 30 ml PO Q6H PRN PRN Reason: Heartburn/Nausea Aspirin (Aspirin 81 Mg Tab.Chew) 81 mg PO DAILY [facility] Last Admin: 04/08/23 09:07 Dose: 81 mg Atorvastatin Calcium (Atorvastatin Calcium 40 Mg Tablet) 40 mg PO BEDTIME [facility] Last Admin: 04/07/23 20:46 Dose: 40 mg Clonidine HCl (Clonidine Hcl 0.1 Mg Tablet) 0.1 mg PO BID [facility]; Protocol Last Admin: 04/08/23 09:07 Dose: 0.1 mg Clopidogrel Bisulfate (Clopidogrel Bisulfate 75 Mg Tablet) 75 mg PO DAILY [facility] Last Admin: 04/08/23 09:07 Dose: 75 mg Divalproex Sodium (Divalproex Sodium 250 Mg Tablet.) 750 mg PO BID [facility] Last Admin: 04/08/23 09:06 Dose: 750 mg Erythromycin (Erythromycin Base 0.5% Oph Oin 1 Gm Tube) 1 cm EYE-BOTH TID [facility] Stop: 04/13/23 14:59 Last Admin: 04/08/23 09:07 Dose: 1 cm Ibuprofen (Ibuprofen 600 Mg Tablet) 600 mg PO Q6H PRN PRN Reason: Pain, Moderate(Pain Scale 4-6) Last Admin: 04/08/23 10:04 Dose: 600 mg Levothyroxine Sodium (Levothyroxine Sodium 50 Mcg Tablet) 50 mcg PO DAILY@0600 [facility] Last Admin: 04/08/23 06:38 Dose: 50 mcg Lorazepam (Lorazepam 0.5 Mg Tablet) 0.5 mg PO Q6H PRN PRN Reason: anxiety/restlessness Last Admin: 04/08/23 09:07 Dose: 0.5 mg Magnesium Hydroxide (Milk Of Magnesia 30 Ml Oral.Susp) 30 ml PO DAILY PRN PRN Reason: Constipation Nicotine (Nicotine 21 Mg Patch.Td24) 21 mg TRANSDERMA DAILY [facility] Last Admin: 04/08/23 13:24 Dose: 21 mg Olanzapine (Olanzapine Odt 10 Mg Tab.Rapdis) 10 mg TRANSLINGU BID PRN PRN Reason: Psychosis Last Admin: 04/08/23 09:07 Dose: 10 mg Omeprazole (Omeprazole 40 Mg Capsule.) 40 mg PO DAILY@0630 [facility] Last Admin: 04/08/23 06:38 Dose: 40 mg Risperidone (Risperidone 2 Mg Tablet) 2 mg PO BID [facility] Last Admin: 04/08/23 09:07 Dose: 2 mg Spironolactone (Spironolactone 25 Mg Tablet) 12.5 mg PO DAILY [facility]; Protocol Last Admin: 04/08/23 09:07 Dose: 12.5 mg Thiamine HCl (Thiamine Hcl 100 Mg Tablet) 100 mg PO DAILY [facility] Last Admin: 04/08/23 09:07 Dose: 100 mg Trazodone HCl (Trazodone Hcl 50 Mg Tablet) 50 mg PO BEDTIME MRX1 PRN PRN Reason: Insomnia Last Admin: 04/04/23 22:04 Dose: 50 mg Allergies Allergies Allergy/AdvReac Type Severity Reaction Status Date / Time Sulfa (Sulfonamide Allergy Unknown Verified 04/04/23 11:07 Antibiotics) Assessment & Plan Assessment & Plan (1) Bipolar disorder: Status: Acute Code(s): F31.9 - Bipolar disorder, unspecified (2) Alcohol use disorder in remission: Status: Acute Code(s): F10.91 - Alcohol use, unspecified, in remission (3) History of TIA (transient ischemic attack): Status: Acute Code(s): Z86.73 - Personal history of transient ischemic attack (TIA), and cerebral infarction without residual deficits Plan The patient is an elderly female with a past history of bipolar disorder and alcohol use disorder in early remission referred from another hospital out of our catchment area due to exacerbation of ashlei and psychosis. According to the crisis assessment his psychiatrist was contacted and he wants to change to Rexulti from Risperdal. Plan 1. Gather collateral information we will try to contact her daughter and psychiatrist. I could speak with her daughter on April 05 and I left a message at her psychiatrist voicemail. 2. Continue with regular medications such as Depakote and Risperdal since we do not have collateral at this moment. 3. Depakote level for tomorrow and basic metabolic panel with LFTs. 4. Hospitalist consult for medical clearance 5. Reassessment with results 6. 15 minute checks. 7. Add Ativan p.r.n. anxiety and Zydis p.r.n. agitation/psychosis. 8. We will try to change to Rexulti and discontinue slowly Risperdal as per discussion with her psychiatrist. Reason for continued inpatient stay Substantial Risk for: inability to function, rapid decompensation and med/psych decompensation Time Spent With Patient Time: Total time managing care of this patient today _20___ minutes.
[2023-04-08 18:00] VITALS: BP 150/68; PULSE 62; RESP 18; TEMP 36.2; O2SAT 100
[2023-04-08] MEDS: Atorvastatin Calcium 40 MG TABLET PO (21:27)
[2023-04-08] MEDS: risperiDONE 1 MG TABLET PO (21:27)
[2023-04-09] MEDS: Levothyroxine Sodium 50 MCG TABLET PO (05:47)
[2023-04-09] MEDS: Omeprazole 40 MG CAPSULE.DR PO (05:47)
[2023-04-09 07:51] VITALS: BP 137/68; PULSE 62; RESP 18; TEMP 36.6; O2SAT 97
[2023-04-09] MEDS: Nicotine 21 MG PATCH.TD24 TRANSDERMA (08:49)
[2023-04-09] MEDS: Spironolactone 25 MG TABLET 12.5 MG PO (08:49)
[2023-04-09] MEDS: Brexpiprazole 1 MG TABLET 0.5 MG PO (08:50)
[2023-04-09] MEDS: cloNIDine HCL 0.1 MG TABLET PO ×2 (08:50→20:45)
[2023-04-09] MEDS: LORazepam 0.5 MG TABLET PO ×2 (08:50→20:44)
[2023-04-09] MEDS: Clopidogrel Bisulfate 75 MG TABLET PO (08:50)
[2023-04-09] MEDS: risperiDONE 1 MG TABLET PO (08:51)
[2023-04-09] MEDS: Thiamine HCL 100 MG TABLET PO (08:51)
[2023-04-09] MEDS: Ibuprofen 600 MG TABLET PO (08:51)
[2023-04-09] MEDS: Divalproex Sodium 250 MG TABLET.DR 750 MG PO ×2 (08:51→20:45)
[2023-04-09] MEDS: Aspirin 81 MG TAB.CHEW PO (08:51)
[2023-04-09] MEDS: Erythromycin Base 0.5% Oph Oin 1 GM TUBE 1 CM EYE-BOTH ×3 (08:52→20:45)
[2023-04-09] MEDS: OLANZapine ODT 10 MG TAB.RAPDIS TRANSLINGU (08:52)
--- NOTE | 2023-04-09 13:56 | HO.PSYCHPN ---
Subjective Subjective Date of Service: 04/09/23 Reason For Visit: Adjustment disorder Subjective Notes: Conditional Voluntary Interim History: The nursing staff reported the patient wanted to be discharged back hook before her birthday. We discussed the case with her daughter who she is caregiver. At this moment the patient is less manic and we do not have grounds to filed Section 7 and 8. We discussed the case with the patient and she retracted her 3 day notice. She has less manic but still hypomanic. We will do Depakote level tomorrow, we will cross taper her from Risperdal to Rexulti. Mental Status Exam Mental Status Exam Patient Appearance: Well Grooomed and Appropriate Patient Orientation: Person and Situation Level of Consciousness: Awake and Appropriate Patient Behavior: Guarded and Passive Mood Description: Withdrawn, Constricted and Expansive Affect Description: Labile Patient Cognition Impaired: No Ability to Follow Directions: Good Speech Pattern: Clear Hallucinations: None Delusions: Not Present and Grandiose Thought Process: Distracted Thought Content: positive for [place] and positive for Circumstantial Judgement: Poor Diagnostics Vital Signs (24Hr): Vital Signs - 24 hr 04/08/23 18:00 04/09/23 07:51 Temperature 97.2 F 97.8 F Pulse Rate 62 62 Respiratory Rate 18 18 Blood Pressure 150/68 H 137/68 Pulse Oximetry 100 97 Oxygen Delivery Method Room Air Room Air BMI result Body Mass Index 23.9 Labs 04/06/23 20:09 04/05/23 07:49 Medications Medications Current Medications Al Hydroxide/Mg Hydroxide (Magnesium Hydrox/Alum Hydrox 30 Ml Oral.Susp) 30 ml PO Q6H PRN PRN Reason: Heartburn/Nausea Aspirin (Aspirin 81 Mg Tab.Chew) 81 mg PO DAILY [facility] Last Admin: 04/09/23 08:51 Dose: 81 mg Atorvastatin Calcium (Atorvastatin Calcium 40 Mg Tablet) 40 mg PO BEDTIME [facility] Last Admin: 04/08/23 21:27 Dose: 40 mg Brexpiprazole (Brexpiprazole 1 Mg Tablet) 0.5 mg PO DAILY [facility] Last Admin: 04/09/23 08:50 Dose: 0.5 mg Clonidine HCl (Clonidine Hcl 0.1 Mg Tablet) 0.1 mg PO BID [facility]; Protocol Last Admin: 04/09/23 08:50 Dose: 0.1 mg Clopidogrel Bisulfate (Clopidogrel Bisulfate 75 Mg Tablet) 75 mg PO DAILY [facility] Last Admin: 04/09/23 08:50 Dose: 75 mg Divalproex Sodium (Divalproex Sodium 250 Mg Tablet.) 750 mg PO BID [facility] Last Admin: 04/09/23 08:51 Dose: 750 mg Erythromycin (Erythromycin Base 0.5% Oph Oin 1 Gm Tube) 1 cm EYE-BOTH TID [facility] Stop: 04/13/23 14:59 Last Admin: 04/09/23 08:52 Dose: 1 cm Ibuprofen (Ibuprofen 600 Mg Tablet) 600 mg PO Q6H PRN PRN Reason: Pain, Moderate(Pain Scale 4-6) Last Admin: 04/09/23 08:51 Dose: 600 mg Levothyroxine Sodium (Levothyroxine Sodium 50 Mcg Tablet) 50 mcg PO DAILY@0600 [facility] Last Admin: 04/09/23 05:47 Dose: 50 mcg Lorazepam (Lorazepam 0.5 Mg Tablet) 0.5 mg PO Q6H PRN PRN Reason: anxiety/restlessness Last Admin: 04/09/23 08:50 Dose: 0.5 mg Magnesium Hydroxide (Milk Of Magnesia 30 Ml Oral.Susp) 30 ml PO DAILY PRN PRN Reason: Constipation Nicotine (Nicotine 21 Mg Patch.Td24) 21 mg TRANSDERMA DAILY [facility] Last Admin: 04/09/23 08:49 Dose: 21 mg Olanzapine (Olanzapine Odt 10 Mg Tab.Rapdis) 10 mg TRANSLINGU BID PRN PRN Reason: Psychosis Last Admin: 04/09/23 08:52 Dose: 10 mg Omeprazole (Omeprazole 40 Mg Capsule.) 40 mg PO DAILY@0630 [facility] Last Admin: 04/09/23 05:47 Dose: 40 mg Risperidone (Risperidone 0.5 Mg Tablet) 0.5 mg PO BID [facility] Spironolactone (Spironolactone 25 Mg Tablet) 12.5 mg PO DAILY [facility]; Protocol Last Admin: 04/09/23 08:49 Dose: 12.5 mg Thiamine HCl (Thiamine Hcl 100 Mg Tablet) 100 mg PO DAILY [facility] Last Admin: 04/09/23 08:51 Dose: 100 mg Trazodone HCl (Trazodone Hcl 50 Mg Tablet) 50 mg PO BEDTIME MRX1 PRN PRN Reason: Insomnia Last Admin: 04/04/23 22:04 Dose: 50 mg Allergies Allergies Allergy/AdvReac Type Severity Reaction Status Date / Time Sulfa (Sulfonamide Allergy Unknown Verified 04/04/23 11:07 Antibiotics) Assessment & Plan Assessment & Plan (1) Bipolar disorder: Status: Acute Code(s): F31.9 - Bipolar disorder, unspecified (2) Alcohol use disorder in remission: Status: Acute Code(s): F10.91 - Alcohol use, unspecified, in remission (3) History of TIA (transient ischemic attack): Status: Acute Code(s): Z86.73 - Personal history of transient ischemic attack (TIA), and cerebral infarction without residual deficits Plan The patient is an elderly female with a past history of bipolar disorder and alcohol use disorder in early remission referred from another hospital out of our catchment area due to exacerbation of ashlie and psychosis. According to the crisis assessment his psychiatrist was contacted and he wants to change to Rexulti from Risperdal. Plan 1. Gather collateral information we will try to contact her daughter and psychiatrist. I could speak with her daughter on April 05 and I left a message at her psychiatrist voicemail. 2. Continue with regular medications such as Depakote and Risperdal since we do not have collateral at this moment. 3. Depakote level for tomorrow and basic metabolic panel with LFTs. 4. Hospitalist consult for medical clearance 5. Reassessment with results 6. 15 minute checks. 7. Add Ativan p.r.n. anxiety and Zydis p.r.n. agitation/psychosis. 8. We will try to change to Rexulti and discontinue slowly Risperdal as per discussion with her psychiatrist. Reason for continued inpatient stay Substantial Risk for: inability to function, rapid decompensation and med/psych decompensation Time Spent With Patient Time: Total time managing care of this patient today __20__ minutes.
[2023-04-09 18:00] VITALS: BP 115/56; PULSE 80; RESP 18; TEMP 36.6; O2SAT 100
[2023-04-09] MEDS: Atorvastatin Calcium 40 MG TABLET PO (20:44)
[2023-04-09] MEDS: risperiDONE 0.5 MG TABLET PO (20:45)
[2023-04-10] MEDS: Ibuprofen 600 MG TABLET PO (03:53)
[2023-04-10] MEDS: LORazepam 0.5 MG TABLET PO ×2 (04:20→20:56)
[2023-04-10] MEDS: Levothyroxine Sodium 50 MCG TABLET PO (05:30)
[2023-04-10] MEDS: Omeprazole 40 MG CAPSULE.DR PO (05:30)
[2023-04-10 08:05] VITALS: BP 134/63; PULSE 63; RESP 18; TEMP 36.4; O2SAT 100
[2023-04-10] MEDS: Nicotine 21 MG PATCH.TD24 TRANSDERMA (08:49)
[2023-04-10] MEDS: Brexpiprazole 1 MG TABLET 0.5 MG PO (08:50)
[2023-04-10] MEDS: Divalproex Sodium 250 MG TABLET.DR 750 MG PO ×2 (08:52→20:55)
[2023-04-10] MEDS: Aspirin 81 MG TAB.CHEW PO (08:52)
[2023-04-10] MEDS: Spironolactone 25 MG TABLET 12.5 MG PO (08:53)
[2023-04-10] MEDS: Clopidogrel Bisulfate 75 MG TABLET PO (08:53)
[2023-04-10] MEDS: Thiamine HCL 100 MG TABLET PO (08:53)
[2023-04-10] MEDS: cloNIDine HCL 0.1 MG TABLET PO ×2 (08:53→20:54)
[2023-04-10] MEDS: risperiDONE 0.5 MG TABLET PO (08:54)
[2023-04-10] MEDS: Erythromycin Base 0.5% Oph Oin 1 GM TUBE 1 CM EYE-BOTH ×3 (08:54→20:55)
[2023-04-10 09:04] LABS: Valproate 61.8 mcg/mL (50.0-100.0)
[2023-04-10 09:07] LABS: Alanine Aminotransferase 9 U/L (0-31); Albumin Level 3.7 g/dL (3.5-5.0); Alkaline Phosphatase 62 U/L (39-117); Anion Gap 8 (12-20); Aspartate Amino Transferase 12 U/L (5-31); Blood Urea Nitrogen 11 mg/dL (9-16); Calcium 8.9 mg/dL (8.4-10.2); Carbon Dioxide 27 mmol/L (22-29); Chloride 99 mmol/L (96-108); Creatinine Clr Calc Pharmacy 84.4; Estimated Glomerular Filt Rate > 60; Glucose Fasting 96 mg/dL (60-99); Potassium 4.7 mmol/L (3.3-5.1); Sodium 129 mmol/L (135-145); Total Protein 6.4 g/dL (6.5-8.0)
--- NOTE | 2023-04-10 14:24 | HO.PSYCHPN ---
Subjective Subjective Date of Service: 04/10/23 Reason For Visit: Adjustment disorder Subjective Notes: Conditional Voluntary Interim History: The nursing staff reported the patient had been less intrusive, compliant with medications. The staff has noticed that she goes to groups and she has been cooperative and pleasant. On interview the patient reports that her flight of ideas has improved she looks less manic and she wants to be discharged tomorrow. No safety concerns at this moment. Mental Status Exam Mental Status Exam Patient Appearance: Well Grooomed and Appropriate Patient Orientation: Person and Situation Level of Consciousness: Awake and Appropriate Patient Behavior: Guarded and Passive Mood Description: Withdrawn Affect Description: Labile Patient Cognition Impaired: Yes Ability to Follow Directions: Good Speech Pattern: Clear Hallucinations: None Delusions: Not Present Thought Process: Distracted and Evasive Thought Content: positive for [place] and positive for Poverty of Content Judgement: Poor Diagnostics Vital Signs (24Hr): Vital Signs - 24 hr 04/09/23 18:00 04/10/23 08:05 Temperature 98 F 97.6 F Pulse Rate 80 63 Respiratory Rate 18 18 Blood Pressure 115/56 L 134/63 Pulse Oximetry 100 100 Oxygen Delivery Method Room Air Room Air BMI result Body Mass Index 23.9 Labs 04/06/23 20:09 04/10/23 07:49 Labs: Laboratory Results - last 48 hr 04/10/23 07:49 Sodium 129 L Potassium 4.7 Chloride 99 Carbon Dioxide 27 Anion Gap 8 L BUN 11 Creatinine 0.62 Estim Creat Clear Calc 84.4 Estimated GFR > 60 Fasting Glucose 96 Calcium 8.9 Total Bilirubin 1.0 AST 12 ALT 9 Alkaline Phosphatase 62 Total Protein 6.4 L Albumin 3.7 Valproic Acid 61.8 Medications Medications Current Medications Al Hydroxide/Mg Hydroxide (Magnesium Hydrox/Alum Hydrox 30 Ml Oral.Susp) 30 ml PO Q6H PRN PRN Reason: Heartburn/Nausea Aspirin (Aspirin 81 Mg Tab.Chew) 81 mg PO DAILY [facility] Last Admin: 04/10/23 08:52 Dose: 81 mg Atorvastatin Calcium (Atorvastatin Calcium 40 Mg Tablet) 40 mg PO BEDTIME [facility] Last Admin: 04/09/23 20:44 Dose: 40 mg Brexpiprazole (Brexpiprazole 1 Mg Tablet) 1 mg PO DAILY [facility] Clonidine HCl (Clonidine Hcl 0.1 Mg Tablet) 0.1 mg PO BID [facility]; Protocol Last Admin: 04/10/23 08:53 Dose: 0.1 mg Clopidogrel Bisulfate (Clopidogrel Bisulfate 75 Mg Tablet) 75 mg PO DAILY [facility] Last Admin: 04/10/23 08:53 Dose: 75 mg Divalproex Sodium (Divalproex Sodium 250 Mg Tablet.) 750 mg PO BID [facility] Last Admin: 04/10/23 08:52 Dose: 750 mg Erythromycin (Erythromycin Base 0.5% Oph Oin 1 Gm Tube) 1 cm EYE-BOTH TID [facility] Stop: 04/13/23 14:59 Last Admin: 04/10/23 08:54 Dose: 1 cm Ibuprofen (Ibuprofen 600 Mg Tablet) 600 mg PO Q6H PRN PRN Reason: Pain, Moderate(Pain Scale 4-6) Last Admin: 04/10/23 03:53 Dose: 600 mg Levothyroxine Sodium (Levothyroxine Sodium 50 Mcg Tablet) 50 mcg PO DAILY@0600 [facility] Last Admin: 04/10/23 05:30 Dose: 50 mcg Lorazepam (Lorazepam 0.5 Mg Tablet) 0.5 mg PO Q6H PRN PRN Reason: anxiety/restlessness Last Admin: 04/10/23 04:20 Dose: 0.5 mg Magnesium Hydroxide (Milk Of Magnesia 30 Ml Oral.Susp) 30 ml PO DAILY PRN PRN Reason: Constipation Nicotine (Nicotine 21 Mg Patch.Td24) 21 mg TRANSDERMA DAILY [facility] Last Admin: 04/10/23 08:49 Dose: 21 mg Olanzapine (Olanzapine Odt 10 Mg Tab.Rapdis) 10 mg TRANSLINGU BID PRN PRN Reason: Psychosis Last Admin: 04/09/23 08:52 Dose: 10 mg Omeprazole (Omeprazole 40 Mg Capsule.) 40 mg PO DAILY@0630 [facility] Last Admin: 04/10/23 05:30 Dose: 40 mg Spironolactone (Spironolactone 25 Mg Tablet) 12.5 mg PO DAILY [facility]; Protocol Last Admin: 04/10/23 08:53 Dose: 12.5 mg Thiamine HCl (Thiamine Hcl 100 Mg Tablet) 100 mg PO DAILY [facility] Last Admin: 04/10/23 08:53 Dose: 100 mg Trazodone HCl (Trazodone Hcl 50 Mg Tablet) 50 mg PO BEDTIME MRX1 PRN PRN Reason: Insomnia Last Admin: 04/04/23 22:04 Dose: 50 mg Allergies Allergies Allergy/AdvReac Type Severity Reaction Status Date / Time Sulfa (Sulfonamide Allergy Unknown Verified 04/04/23 11:07 Antibiotics) Assessment & Plan Assessment & Plan (1) Bipolar disorder: Status: Acute Code(s): F31.9 - Bipolar disorder, unspecified (2) Alcohol use disorder in remission: Status: Acute Code(s): F10.91 - Alcohol use, unspecified, in remission (3) History of TIA (transient ischemic attack): Status: Acute Code(s): Z86.73 - Personal history of transient ischemic attack (TIA), and cerebral infarction without residual deficits Plan The patient is an elderly female with a past history of bipolar disorder and alcohol use disorder in early remission referred from another hospital out of our catchment area due to exacerbation of ashlie and psychosis. According to the crisis assessment his psychiatrist was contacted and he wants to change to Rexulti from Risperdal. Plan 1. Gather collateral information we will try to contact her daughter and psychiatrist. I could speak with her daughter on April 05 and I left a message at her psychiatrist voicemail. 2. Continue with regular medications such as Depakote and Risperdal since we do not have collateral at this moment. 3. Depakote level for tomorrow and basic metabolic panel with LFTs. 4. Hospitalist consult for medical clearance 5. Reassessment with results 6. 15 minute checks. 7. Add Ativan p.r.n. anxiety and Zydis p.r.n. agitation/psychosis. 8. We will try to change to Rexulti and discontinue slowly Risperdal as per discussion with her psychiatrist. Reason for continued inpatient stay Substantial Risk for: inability to function, rapid decompensation and med/psych decompensation Time Spent With Patient Time: Total time managing care of this patient today ___20_ minutes.
[2023-04-10 19:30] VITALS: BP 143/89; PULSE 60; RESP 16; TEMP 36.3; O2SAT 100
[2023-04-10] MEDS: Atorvastatin Calcium 40 MG TABLET PO (20:55)
[2023-04-11] MEDS: Levothyroxine Sodium 50 MCG TABLET PO (05:33)
[2023-04-11] MEDS: Omeprazole 40 MG CAPSULE.DR PO (05:33)
[2023-04-11 07:55] VITALS: BP 103/58; PULSE 66; RESP 18; TEMP 36; O2SAT 100
--- NOTE | 2023-04-11 08:20 | PM.PSYDC ---
DS: Providers Provider Date of Service: 04/11/23 Date of admission: 04/04/23 09:20 Date of discharge: 04/11/23 Primary care physician: Unknown Physician Consults: 04/04/23 10:58 Consult to Hospitalist Routine Comment: Consulting Provider: Hospitalist Reason For Exam: Direct admission Attending physician on discharge: Duran Cobb DS: Diagnosis Discharge Diagnosis (1) Bipolar disorder: Status: Acute (2) Alcohol use disorder in remission: Status: Acute (3) History of TIA (transient ischemic attack): Status: Acute DS: Medications Discharge Medications Home Medications: Home Medications Medication Instructions Recorded Confirmed divalproex 500 mg tablet,delayed 500 mg PO BID 04/04/23 04/04/23 release risperidone 2 mg tablet 2 mg PO BID 04/04/23 04/04/23 Previous Rx's Medication Instructions Recorded aspirin 81 mg chewable tablet 81 mg PO DAILY 30 days #30 tabs 04/10/23 aspirin 81 mg tablet,delayed 81 mg PO DAILY 30 days #30 tabs 04/10/23 release atorvastatin 40 mg tablet 40 mg PO BEDTIME 30 days #30 tabs 04/10/23 brexpiprazole 1 mg tablet (Rexulti) 1 mg PO DAILY 30 days #30 tabs 04/10/23 clonidine HCl 0.1 mg tablet 0.1 mg PO BID 30 days #60 tabs 04/10/23 clopidogrel 75 mg tablet 75 mg PO DAILY 30 days #30 tabs 04/10/23 divalproex 250 mg tablet,delayed 750 mg (3 x 250 mg) PO BID 30 days 04/10/23 release #180 tabs erythromycin 5 mg/gram (0.5 %) eye 1 cm ophthalmic (eye) TID 30 days 04/10/23 ointment #1 g ibuprofen 600 mg tablet 600 mg PO Q6H PRN Pain, 04/10/23 Moderate(Pain Scale 4-6) 30 days #60 tabs levothyroxine 50 mcg capsule 50 mcg PO DAILY 30 days #30 caps 04/10/23 lorazepam 0.5 mg tablet 0.5 mg PO Q6H PRN 04/10/23 Anxiety/Restlessness 30 days #60 tabs omeprazole 40 mg capsule,delayed 40 mg PO DAILY 30 days #30 caps 04/10/23 release spironolactone 25 mg tablet 12.5 mg (1/2 x 25 mg) PO DAILY 30 04/10/23 days #15 tabs thiamine HCl (vitamin B1) 100 mg 100 mg PO DAILY 30 days #30 tabs 04/10/23 tablet trazodone 50 mg tablet 50 mg PO BEDTIME MRX1 PRN Insomnia 04/10/23 30 days #60 tabs Mental Status Exam Mental Status Exam Patient Appearance: Well Grooomed and Appropriate Patient Orientation: Person and Situation Level of Consciousness: Awake and Appropriate Patient Behavior: Appropriate and Cooperative Mood Description: Calm Affect Description: Constricted Patient Cognition Impaired: No Ability to Follow Directions: Good Speech Pattern: Clear Hallucinations: None Delusions: Not Present Thought Process: Linear Thought Content: positive for [place] and positive for Circumstantial Judgement: Fair Data Data Completed and Pending Completed studies during hospitalization [Text1]: 04/05/23 04/06/23 04/10/23 07:49 20:09 07:49 WBC 4.0 L RBC 3.70 L Hgb 10.8 L Hct 34.6 L MCV 93.5 MCH 29.2 MCHC 31.2 RDW 16.7 H Plt Count 181 MPV 9.2 L Immature Gran % (Auto) 0.3 Neut % (Auto) 60.9 Lymph % (Auto) 24.6 Archer % (Auto) 10.6 Eos % (Auto) 3.3 Baso % (Auto) 0.3 Lymph # (Auto) 1.0 L [place] # (Auto) 0.4 Eos # (Auto) 0.1 Baso # (Auto) 0.0 Abs Immat Gran (auto) 0.01 Absolute Neuts (auto) 2.4 Absolute Nucleated RBC 0.000 Nucleated RBC % (auto) 0.0 Sodium 135 129 L Potassium 4.4 4.7 Chloride 103 99 Carbon Dioxide 26 27 Anion Gap 10 L 8 L BUN 9 11 Creatinine 0.62 0.62 Estim Creat Clear Calc 84.4 84.4 Estimated GFR > 60 > 60 Fasting Glucose 104 H 96 Calcium 8.9 8.9 Total Bilirubin 1.2 H 1.0 AST 13 12 ALT 7 9 Alkaline Phosphatase 66 62 Ammonia 27 Total Protein 6.8 6.4 L Albumin 3.9 3.7 Triglycerides 62 Cholesterol 123 LDL Cholesterol, Calc 57 HDL Cholesterol 54 Valproic Acid 45.9 L 61.8 DS: Summary Hospital Course Hospital Course: Patient is a 67-year-old female, , mother of 1 adult daughter, resident of a facility out of our catchment area referred to this hospital from the emergency room another hospital for ashlie. The Patient was brought to the emergency room from her facility due to flight of ideas, irritable mood, lability and disorganized behavior. Please see theHPI of the admission note for further details. She was medically cleared, assessed by crisis and transferring to this facility for continuation of care. On admission the patient was grossly manic, she was a very poor historian. She stated that she follows outpatient treatment with a local provider and she had been compliant with medication. We discussed risks, benefits, side-effects and alternatives and we continue her Depakote and Risperdal on admission. Over that weekend, her Depakote level was low and he was increased up to 750 mg p.o. b.i.d.. She signed a 3 day notice that later she recanted. Later on, I was able to contact her psychiatrist and we discussed her case. Her regular psychiatrist wanted to change Risperdal to Rexulti. We contacted her daughter who is also a medical provider and we gather more collateral information. I crosstappered from Risperdal to Rexulti without side effects. Her mood became more stable, she was future oriented and there were no safety concerns. Time spent discussing smoking cessation with patient: 3 to 10 minutes Status at Discharge Cognitive/behavioral status at discharge: At baseline Functional status at discharge: independent ambulation Overall status at discharge: patient is progressing back to baseline (still some residual manic symptoms that are improving) Time Spent with Patient Time attestation: Total time managing care of this patient today __30__ minutes. Time spent: Less than 30 minutes Discharge Plan Discharge Anticipated Discharge Date/Time: 04/11/23 10:00 Patient Disposition: Home, Self-Care Discharge Diagnosis: Bipolar Disorder Alcohol use disorder on early remission Referrals: Dr Bj Baig senior production planner [Other] - 1 Week (Family ) Dr Ulisses Clark Psychiatrist [Other] - 04/11/23 3:30 pm (Your next appointment with Dr Clark is scheduled for at 12:00pm. ) Marguerite Maciel Therapist [Other] - 1 Week (Call was placed and request for follow up therapy appointment. Please contact your therapist directly for appointment date and time. ) Age Span [Other] - 1 Week Discharge Medications: New divalproex 250 mg Tablet,Delayed Release (Dr/Ec) 750 mg PO BID 30 Days Qty: 180 0RF aspirin 81 mg Tablet,Chewable 81 mg PO DAILY 30 Days Qty: 30 0RF ibuprofen 600 mg Tablet 600 mg PO Q6H PRN (Reason: Pain, Moderate(Pain Scale 4-6)) 30 Days Qty: 60 0RF Rexulti 1 mg Tablet 1 mg PO DAILY 30 Days Qty: 30 0RF trazodone 50 mg Tablet 50 mg PO BEDTIME MRX1 PRN (Reason: Insomnia) 30 Days Qty: 60 0RF lorazepam 0.5 mg Tablet 0.5 mg PO Q6H PRN (Reason: Anxiety/Restlessness) 30 Days Qty: 60 0RF erythromycin 5 mg/gram (0.5 %) Ointment 1 cm ophthalmic (eye) TID 30 Days Qty: 1 0RF Continued atorvastatin 40 mg Tablet 40 mg PO BEDTIME 30 Days Qty: 30 0RF clonidine HCl 0.1 mg Tablet 0.1 mg PO BID 30 Days Qty: 60 0RF thiamine HCl (vitamin B1) 100 mg Tablet 100 mg PO DAILY 30 Days Qty: 30 0RF clopidogrel 75 mg Tablet 75 mg PO DAILY 30 Days Qty: 30 0RF omeprazole 40 mg Capsule,Delayed Release(Dr/Ec) 40 mg PO DAILY 30 Days Qty: 30 0RF aspirin 81 mg Tablet,Delayed Release (Dr/Ec) 81 mg PO DAILY 30 Days Qty: 30 0RF spironolactone 25 mg Tablet 12.5 mg PO DAILY 30 Days Qty: 15 0RF levothyroxine 50 mcg Capsule 50 mcg PO DAILY 30 Days Qty: 30 0RF Discontinued divalproex 500 mg Tablet,Delayed Release (Dr/Ec) 500 mg PO BID risperidone 2 mg Tablet 2 mg PO BID Discharge Orders: Discharge Order (Routine); Ordered 04/11/23 Ordered By: Duran Cobb Diet: Advance to usual diet Activity on Discharge: As tolerated Stand Alone Forms: Patient Portal Discharge page Care Plan Goals: Care plan goals achieved in this admission. Health Concerns: Continue treatment with outpatient providers. Plan of Treatment: Continue treatment with outpatient psychiatrist. Assessment: The patient is an elderly female with bipolar disorder who was brought to the facility due to ashlie. We increase her Depakote to a therapeutic level and cross taper Risperdal to Rexulti with no side effects. At this moment the patient is safe to be discharged to the community for continuation of care as an outpatient.
[2023-04-11] MEDS: Nicotine 21 MG PATCH.TD24 TRANSDERMA (09:08)
[2023-04-11] MEDS: Divalproex Sodium 250 MG TABLET.DR 750 MG PO (09:10)
[2023-04-11] MEDS: Aspirin 81 MG TAB.CHEW PO (09:11)
[2023-04-11] MEDS: Brexpiprazole 1 MG TABLET PO (09:12)
[2023-04-11] MEDS: Erythromycin Base 0.5% Oph Oin 1 GM TUBE 1 CM EYE-BOTH (09:12)
[2023-04-11] MEDS: Spironolactone 25 MG TABLET 12.5 MG PO (09:13)
[2023-04-11] MEDS: cloNIDine HCL 0.1 MG TABLET PO (09:13)
[2023-04-11] MEDS: Thiamine HCL 100 MG TABLET PO (09:13)
[2023-04-11] MEDS: Clopidogrel Bisulfate 75 MG TABLET PO (09:14)
== END 2023-04-11 11:30 | disposition home or self-care (01) | DRG 885 ==
PROVIDERS: Psychiatry & Neurology Psychiatry; Admitting Provider Psychiatry & Neurology Psychiatry; Visit Provider Psychiatry & Neurology Psychiatry
DX: F31.10 Bipolar disorder, current episode manic without psychotic features, unspecified (principal); E03.9 Hypothyroidism, unspecified; Z86.73 Personal history of transient ischemic attack (TIA), and cerebral infarction without residual deficits; F10.21 Alcohol dependence, in remission; F17.210 Nicotine dependence, cigarettes, uncomplicated; Z71.6 Tobacco abuse counseling; Z23 Encounter for immunization; Z79.01 Long term (current) use of anticoagulants; Z79.890 Hormone replacement therapy; Z79.899 Other long term (current) drug therapy
CPT/HCPCS: 36415; 80053; 80061; 80164; 82140; 85025; 90686

== ENCOUNTER → 2023-04-04 09:20 | Outpatient (BNV) | payer MEDICARE, SELFPAY | PROVIDERS: Admitting Provider Psychiatry & Neurology Psychiatry; Visit Provider Psychiatry & Neurology Psychiatry | DX: F31.2 Bipolar disorder, current episode manic severe with psychotic features (principal); F10.91 Alcohol use, unspecified, in remission; Z86.73 Personal history of transient ischemic attack (TIA), and cerebral infarction without residual deficits | CPT/HCPCS: 90792; 99231; 99232; 99238 ==

== ENCOUNTER → 2023-04-04 09:20 | Outpatient (BNV) | payer MEDICARE, SELFPAY | PROVIDERS: Admitting Provider Psychiatry & Neurology Psychiatry; Visit Provider Internal Medicine | DX: Z02.2 Encounter for examination for admission to residential institution (principal); Z86.73 Personal history of transient ischemic attack (TIA), and cerebral infarction without residual deficits | CPT/HCPCS: 99429 ==